=== PATIENT | male | born 1935 | race Caucasian/White ===

== ENCOUNTER → 2017-01-04 | Outpatient (CLI) | payer MEDICARE ==
--- NOTE | 2017-01-04 15:42 | US ---
EXAMINATION TYPE: US kidneys/renal and bladder DATE OF EXAM: 01/04/2017 3:14 PM COMPARISON: NONE CLINICAL HISTORY: R94.4 Abn Renal Function Test. Patient stated has had bilateral renal stones with r ight renal surgery/and possible partial nephrectomy for stone removal EXAM MEASUREMENTS: Right Kidney: 9.3 x 6.5 x 4.4 cm Left Kidney: 15.5 x 7.5 x 6.3 cm Post Void Residual Volume: 1.3 mL TECHNOLOGIST IMPRESSION: Right Kidney: smaller than left kidney and may be related to renal surgery; Left Kidney: couple of cortical simple appearing cysts with largest at mid pole = 2.9 x 3.6 x 2.6cm Bladder: not fully distended Bilateral Jets seen: not seen after 3 minute observation Normal Post Void Residual: Yes Bladder is poorly distended and thus suboptimally evaluated. No worrisome intraluminal mass or wall t hickening is seen. Scattered nonshadowing hyperechoic foci may reflect small nonobstructing renal shabbir culi upper pole level right kidney. IMPRESSION: Asymmetric sizes to kidneys may be product of prior right-sided renal surgery. Some simpl e appearing cysts are scattered throughout the left kidney. No hydronephrosis is evident bilaterally.
== END | disposition home or self-care (01) ==
LOC: RADUSWWP 14:32
PROVIDERS: ATTEND Family Medicine
DX: N28.1 Cyst of kidney, acquired (principal); Z98.890 Other specified postprocedural states
CPT/HCPCS: 76770

== ENCOUNTER 2018-01-21 21:01 | Emergency (ER) | payer MEDICARE ==
[2018-01-21] MEDS ORDERED: SODIUM CHLORIDE 0.9% 1,000 ML IV STA ×2 (21:31)
[2018-01-21] MEDS ORDERED: ACETAMINOPHEN IV (For NPO) 1,000 MG in EMPTY BAG 1 BAG IVPB STA (21:32)
[2018-01-21] MEDS ORDERED: KETOROLAC 30 MG/ML 1 ML VIAL IVP STA (21:32)
[2018-01-21 21:58] VITALS: RESP 20
[2018-01-21 22:00] LABS: Basophils # (A) 0.1 k/uL (0-0.2); Basophils % (A) 1 %; Eosinophils # (A) 0.3 k/uL (0-0.7); Eosinophils % (A) 3 %; HCT 41.9 % (39.0-53.0); HGB 13.8 gm/dL (13.0-17.5); Lymphocytes # (A) 2.6 k/uL (1.0-4.8); Lymphocytes % (A) 27 %; MCH 29.8 pg (25.0-35.0); MCHC 32.8 g/dL (31.0-37.0); MCV 90.8 fL (80.0-100.0); Mean Platelet Volume 6.7; Monocytes # (A) 0.9 k/uL (0-1.0); Monocytes % (A) 10 %; Neutrophils # (A) 5.3 k/uL (1.3-7.7); Neutrophils % (A) 56 %; Platelet Count 308 k/uL (150-450); RBC 4.62 m/uL (4.30-5.90); RDW 13.4 % (11.5-15.5); WBC 9.5 k/uL (3.8-10.6)
[2018-01-21 22:10] LABS: ALT 22 U/L (21-72); AST 33 U/L (17-59); Alkaline Phosphatase 144 U/L (38-126); Anion Gap 10 mmol/L; Blood Urea Nitrogen 21 mg/dL (9-20); Calcium 9.9 mg/dL (8.4-10.2); Carbon Dioxide 28 mmol/L (22-30); Chloride 97 mmol/L (98-107); Glucose 113 mg/dL (74-99); Magnesium 1.6 mg/dL (1.6-2.3); Phosphorus 3.9 mg/dL (2.5-4.5); Potassium 4.4 mmol/L (3.5-5.1); Sodium 135 mmol/L (137-145); Total Bilirubin 0.3 mg/dL (0.2-1.3); Total Protein 7.8 g/dL (6.3-8.2)
--- NOTE | 2018-01-21 22:31 | XR ---
EXAMINATION TYPE: XR chest 2V DATE OF EXAM: 01/21/2018 COMPARISON: NONE HISTORY: Hypertension. Altered mental status TECHNIQUE: Frontal and lateral views of the chest are obtained. FINDINGS: There is no heart failure nor confluent pneumonic infiltrate. There is coarsening of inter stitial markings the lung bases. Thoracic aorta is atheromatous. Bony thorax is intact. IMPRESSION: Pulmonary mild fibrotic changes. Ankylotic changes in the thoracic spine. No acute lung disease. No adverse change compared to old exam.
--- NOTE | 2018-01-21 22:34 | CT ---
EXAMINATION TYPE: CT brain wo con DATE OF EXAM: 01/21/2018 COMPARISON: 11/26/2017 HISTORY: Elevated blood pressure with headache CT DLP: 1047.1 mGycm Automated exposure control for dose reduction was used. FINDINGS: There is cerebral cortical atrophy. There is patchy moderate hypodensity in the periventricular white matter. There is mild cortical hypodensity in the occipital lobes. There is no midline shift. There is some cortical hypodensity in the right posterior frontal lobe. Calvarium is intact. There is no ev idence of intracranial hemorrhage. 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 THERE IS ALSO MILD INFARCT IN THE OCCIPITAL LOBES. NO SIGNIFICANT CHANGE COMPARED T O OLD EXAM.
--- NOTE | 2018-01-21 22:55 | ED ---
General Adult HPI - General Chief complaint: Recheck/Abnormal Lab/Rx Stated complaint: blood pressure Time Seen by Provider: 01/21/18 21:31 Source: patient, RN notes reviewed, old records reviewed Mode of arrival: wheelchair Limitations: no limitations - History of Present Illness Initial comments: This is an 82-year-old male to the ER for evaluation. Patient presented ER for evaluation and altered mental status, fever, headache, not appropriate. Patient 's states patient actually this when he has infection. Patient herself has no complaints. Family also her blood pressure be significantly elevated at home. Patient is poor historian secondary to clinical condition - Related Data Home Medications Medication Instructions Recorded Confirmed Brimonidine Tartrate/Timolol 1 drops LEFT EYE BID 05/28/14 01/21/18 [Combigan 0.2%/0.5% Ophth Soln] Sertraline [Zoloft] 100 mg PO DAILY 05/28/14 01/21/18 Zolpidem [Ambien] 10 mg PO HS PRN 05/28/14 01/21/18 ALPRAZolam [Xanax] 0.25 mg PO BID PRN 04/27/15 01/21/18 cloNIDine 0.1 MG/24HR PATCH 1 patch TRANSDERM TH 04/27/15 01/21/18 [Catapres-TTS] clonazePAM [KlonoPIN] 1 mg PO BID 04/27/15 01/21/18 Apixaban [Eliquis] 2.5 mg PO BID 11/22/17 01/21/18 Bimatoprost [Lumigan .01% Ophth 1 drop LEFT EYE HS 11/22/17 01/21/18 Soln] Metoprolol Tartrate [Lopressor] 25 mg PO BID 11/22/17 01/21/18 Ranitidine HCl [Zantac] 150 mg PO HS 11/22/17 01/21/18 Mesalamine [Delzicol] 400 mg PO BID 01/21/18 01/21/18 Zzzquil 1 cap PO HS PRN 01/21/18 01/21/18 Allergies Allergy/AdvReac Type Severity Reaction Status Date / Time amlodipine besylate Allergy Unknown Verified 01/21/18 21:32 [From Norvasc] diphenhydramine HCl Allergy Unknown Verified 01/21/18 21:32 [From Benadryl] duloxetine HCl Allergy Unknown Verified 01/21/18 21:32 [From Cymbalta] levofloxacin [From Levaquin] Allergy Rash/Hives Verified 01/21/18 21:32 Penicillins Allergy Rash/Hives Verified 01/21/18 21:32 prochlorperazine edisylate Allergy Unknown Verified 01/21/18 21:32 [From Compazine] prochlorperazine maleate Allergy Unknown Verified 01/21/18 21:32 [From Compazine] adhesive AdvReac Unknown Verified 01/21/18 21:32 Review of Systems ROS Statement: Those systems with pertinent positive or pertinent negative responses have been documented in the HPI. ROS Other: All systems not noted in ROS Statement are negative. 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 History of Any Multi-Drug Resistant Organisms: None Reported Past Surgical History: Appendectomy, Back Surgery, Cholecystectomy, Joint Replacement, Orthopedic Surgery Additional Past Surgical History / Comment(s): BILATERAL TOTAL KNEE ARTHROPLASTIES, BACK SURGERIES X 3/FUSIONS, RT PARTIAL KIDNEY REMOVED, ROTATOR CUFF RT OPEN SURGERY, R CAROTID ENDARTECTOMY, COLONOSCOPY, SKIN CANCER REMOVALS Past Anesthesia/Blood Transfusion Reactions: No Reported Reaction Additional Past Anesthesia/Blood Transfusion Reaction / Comment(s): Large amount of anesthesia to put pt to sleep. Past Psychological History: Depression Smoking Status: Former smoker Past Alcohol Use History: None Reported Past Drug Use History: None Reported - Past Family History Father Family Medical History: Coronary Artery Disease (CAD), Myocardial Infarction (HI ) Additional Family Medical History / Comment(s): Father of a HI at age 53yrs. Mother Family Medical History: No Reported History Additional Family Medical History / Comment(s): Mother was healthy and lived to be in her 80's. General Exam Limitations: no limitations General appearance: alert, in no apparent distress Head exam: Present: atraumatic, normocephalic, normal inspection Eye exam: Present: normal appearance, PERRL, EOMI. Absent: scleral icterus, conjunctival injection, periorbital swelling ENT exam: Present: normal exam, mucous membranes moist Neck exam: Present: normal inspection. Absent: tenderness, meningismus, lymphadenopathy Respiratory exam: Present: normal lung sounds bilaterally. Absent: respiratory distress, wheezes, rales, rhonchi, stridor Cardiovascular Exam: Present: regular rate, normal rhythm, normal heart sounds. Absent: systolic murmur, diastolic murmur, rubs, gallop, clicks GI/Abdominal exam: Present: soft, normal bowel sounds. Absent: distended, tenderness, guarding, rebound, rigid Extremities exam: Present: normal inspection, full ROM, normal capillary refill. Absent: tenderness, pedal edema, joint swelling, calf tenderness Back exam: Present: normal inspection Neurological exam: Present: alert, oriented X3, CN II-XII intact Psychiatric exam: Present: normal affect, normal mood Skin exam: Present: warm, dry, intact, normal color. Absent: rash Course Vital Signs 01/21/18 01/21/18 01/21/18 21:06 21:53 21:57 Temperature 100.4 F H Pulse Rate 76 73 74 Respiratory 18 20 20 Rate Blood Pressure 119/69 135/78 135/78 O2 Sat by Pulse 93 L 92 L 90 L Oximetry 01/21/18 23:09 Temperature 98.6 F Pulse Rate 68 Respiratory 20 Rate Blood Pressure 125/70 O2 Sat by Pulse 94 L Oximetry - Reevaluation(s) Reevaluation #1: 01/22/18 00:02 We'll pressure remains improved, mental head is mental status is improved now blood pressure control Reevaluation #2: 01/22/18 00:03 Patient is feeling better with IV hydration and fever control Medical Decision Making - Medical Decision Making 82 male the ER for evaluation of altered mental status with hypertension, those symptoms resolved upon arrival to ER. Patient did have fever no, no found cause of fever at this time. Viral syndrome. Patient was discharged home follow-up with Dr. Fam. Spoke speaking with , patient is at baseline, she would like to take him home - Lab Data Result diagrams: 01/21/18 21:48 01/21/18 21:48 Lab Results 01/21/18 01/21/18 01/21/18 Range/Units 21:48 21:48 21:48 WBC 9.5 (3.8-10.6) k/uL RBC 4.62 (4.30-5.90) m/uL Hgb 13.8 (13.0-17.5) gm/dL Hct 41.9 (39.0-53.0) % MCV 90.8 (80.0-100.0) fL MCH 29.8 (25.0-35.0) pg MCHC 32.8 (31.0-37.0) g/dL RDW 13.4 (11.5-15.5) % Plt Count 308 (150-450) k/uL Neutrophils % 56 % Lymphocytes % 27 % Monocytes % 10 % Eosinophils % 3 % Basophils % 1 % Neutrophils # 5.3 (1.3-7.7) k/uL Lymphocytes # 2.6 (1.0-4.8) k/uL Monocytes # 0.9 (0-1.0) k/uL Eosinophils # 0.3 (0-0.7) k/uL Basophils # 0.1 (0-0.2) k/uL Sodium 135 L (137-145) mmol/L Potassium 4.4 (3.5-5.1) mmol/L Chloride 97 L (98-107) mmol/L Carbon Dioxide 28 (22-30) mmol/L Anion Gap 10 mmol/L BUN 21 H (9-20) mg/dL Creatinine 1.30 H (0.66-1.25) mg/dL Est GFR (MDRD) Af Amer >60 (>60 ml/min/1.73 sqM) Est GFR (MDRD) Non-Af 53 (>60 ml/min/1.73 sqM) Glucose 113 H (74-99) mg/dL Plasma Lactic Acid Giuseppe 1.7 (0.7-2.0) mmol/L Calcium 9.9 (8.4-10.2) mg/dL Phosphorus 3.9 (2.5-4.5) mg/dL Magnesium 1.6 (1.6-2.3) mg/dL Total Bilirubin 0.3 (0.2-1.3) mg/dL AST 33 (17-59) U/L ALT 22 (21-72) U/L Alkaline Phosphatase 144 H (38-126) U/L Total Protein 7.8 (6.3-8.2) g/dL Albumin 4.0 (3.5-5.0) g/dL Urine Color Urine Appearance (Clear) Urine pH (5.0-8.0) Ur Specific Doyle (1.001-1.035) Urine Protein (Negative) Urine Glucose (UA) (Negative) Urine Ketones (Negative) Urine Blood (Negative) Urine Nitrite (Negative) Urine Bilirubin (Negative) Urine Urobilinogen (<2.0) mg/dL Ur Leukocyte Esterase (Negative) Urine WBC (0-5) /hpf Ur Squamous Epith Cells (0-4) /hpf Hyaline Casts (0-2) /lpf Urine Mucus (None) /hpf Influenza Type A RNA (Not Detectd) Influenza Type B (PCR) (Not Detectd) 01/21/18 01/22/18 Range/Units 21:55 01:10 WBC (3.8-10.6) k/uL RBC (4.30-5.90) m/uL Hgb (13.0-17.5) gm/dL Hct (39.0-53.0) % MCV (80.0-100.0) fL MCH (25.0-35.0) pg MCHC (31.0-37.0) g/dL RDW (11.5-15.5) % Plt Count (150-450) k/uL Neutrophils % % Lymphocytes % % Monocytes % % Eosinophils % % Basophils % % Neutrophils # (1.3-7.7) k/uL Lymphocytes # (1.0-4.8) k/uL Monocytes # (0-1.0) k/uL Eosinophils # (0-0.7) k/uL Basophils # (0-0.2) k/uL Sodium (137-145) mmol/L Potassium (3.5-5.1) mmol/L Chloride (98-107) mmol/L Carbon Dioxide (22-30) mmol/L Anion Gap mmol/L BUN (9-20) mg/dL Creatinine (0.66-1.25) mg/dL Est GFR (MDRD) Af Amer (>60 ml/min/1.73 sqM) Est GFR (MDRD) Non-Af (>60 ml/min/1.73 sqM) Glucose (74-99) mg/dL Plasma Lactic Acid Giuseppe (0.7-2.0) mmol/L Calcium (8.4-10.2) mg/dL Phosphorus (2.5-4.5) mg/dL Magnesium (1.6-2.3) mg/dL Total Bilirubin (0.2-1.3) mg/dL AST (17-59) U/L ALT (21-72) U/L Alkaline Phosphatase (38-126) U/L Total Protein (6.3-8.2) g/dL Albumin (3.5-5.0) g/dL Urine Color Yellow Urine Appearance Clear (Clear) Urine pH 5.5 (5.0-8.0) Ur Specific Doyle 1.020 (1.001-1.035) Urine Protein 1+ H (Negative) Urine Glucose (UA) Negative (Negative) Urine Ketones Negative (Negative) Urine Blood Negative (Negative) Urine Nitrite Negative (Negative) Urine Bilirubin Negative (Negative) Urine Urobilinogen <2.0 (<2.0) mg/dL Ur Leukocyte Esterase Negative (Negative) Urine WBC 1 (0-5) /hpf Ur Squamous Epith Cells <1 (0-4) /hpf Hyaline Casts 1 (0-2) /lpf Urine Mucus Occasional H (None) /hpf Influenza Type A RNA Not Detected (Not Detectd) Influenza Type B (PCR) Not Detected (Not Detectd) - Radiology Data Radiology results: report reviewed (CT brain chest x-ray negative for acute disease), image reviewed Disposition Clinical Impression: Dementia, Altered mental status, Fever, Hypertension Disposition: HOME SELF-CARE Condition: Good Instructions: Fever in Adults (ED), Altered Mental Status (ED), Hypertension ( ED) Referrals: Helio Lawson MD [Primary Care Provider] - 1-2 days
[2018-01-21 23:10] VITALS: PULSE 68
[2018-01-22 01:30] LABS: Appearance,Urine Clear (Clear); Bilirubin,Urine Negative (Negative); Blood,Urine Negative (Negative); Color,Urine Yellow; Glucose,Urine (UA) Negative (Negative); Hyaline Casts,Urine 1 /lpf (0-2); Ketones,Urine Negative (Negative); Leukocyte Esterase,Urine Negative (Negative); Mucus,Urine Occasional /hpf; Nitrite,Urine Negative (Negative); PH, Urine 5.5 (5.0-8.0); Protein,Urine 1+ (Negative); Squamous Epithelial Cell,Urine <1 /hpf (0-4); Urobilinogen,Urine <2.0 mg/dL (<2.0); WBC,Urine 1 /hpf (0-5)
[2018-01-22 01:58] VITALS: BP 150/73; TEMP 98.4
== END 2018-01-22 01:58 | disposition home or self-care (01) ==
LOC: EC 21:01
DX: F03.90 Unspecified dementia, unspecified severity, without behavioral disturbance, psychotic disturbance, mood disturbance, and anxiety (principal); R41.82 Altered mental status, unspecified; I10 Essential (primary) hypertension; R50.9 Fever, unspecified; R51 Headache; H91.90 Unspecified hearing loss, unspecified ear; F32.9 Major depressive disorder, single episode, unspecified; Z87.891 Personal history of nicotine dependence; Z79.01 Long term (current) use of anticoagulants; Z79.899 Other long term (current) drug therapy; Z88.0 Allergy status to penicillin; Z88.1 Allergy status to other antibiotic agents; Z88.8 Allergy status to other drugs, medicaments and biological substances; Z91.09 Other allergy status, other than to drugs and biological substances; Z86.73 Personal history of transient ischemic attack (TIA), and cerebral infarction without residual deficits; Z85.828 Personal history of other malignant neoplasm of skin; Z85.820 Personal history of malignant melanoma of skin; Z92.3 Personal history of irradiation; Z82.49 Family history of ischemic heart disease and other diseases of the circulatory system
CPT/HCPCS: 36415; 80053; 83605; 83735; 84100; 85025; 81001; 87040; 87086; 87502; 71046; 70450; 99285; 96365; 96366 ×2; 96375; J1885; J0131

== ENCOUNTER → 2018-05-13 | Outpatient (CLI) | payer MEDICARE ==
--- NOTE | 2018-05-13 13:48 | CT ---
EXAMINATION TYPE: CT brain wo con DATE OF EXAM: 05/13/2018 COMPARISON: 01/21/2018 HISTORY: Fall, head injury CT DLP: 1195.3 mGycm Automated exposure control for dose reduction was used. FINDINGS: There is cerebral cortical atrophy. There is patchy extensive hypodensity in the periventricular whit e matter. On the right. There is mild cortical hypodensity in the occipital lobes. There is no midline shift. There is some cortical hypodensity in the right posterior frontal lobe. Calvarium is intact. There is no evidence of intracranial hemorrhage. There is intracranial atheroscl erotic changes. Tiny remote lacunar infarct right basal ganglia. IMPRESSION: 1. Degenerative and extensive remote ischemic change as discussed above with no evidence of acute hem orrhage or mass effect.
--- NOTE | 2018-05-13 13:57 | CT ---
EXAMINATION TYPE: CT abdomen pelvis wo con DATE OF EXAM: 05/13/2018 COMPARISON: Prior pelvis dated 05/28/2014, lumbar spine 11/09/2015 HISTORY: Abdominal pain CT DLP: 1136.54 mGycm Automated exposure control for dose reduction was used. TECHNIQUE: Helical acquisition of images from the lung bases through the pelvis. FINDINGS: Lack of intravenous contrast could compromise the sensitivity of the exam LUNG BASES: Minimal dependent atelectatic changes or basilar scarring suspected. No pleural or peric ardial effusion. There are coronary artery calcifications present. Hiatal hernia is also noted. AORTA: No significant abnormality is appreciated. LIVER/GB: Liver within normal limits, gallbladder is absent PANCREAS: Somewhat atrophic SPLEEN: Some distortion of the normal spleen change is noted possibly congenital ADRENALS: No significant abnormality is seen. KIDNEYS: Postop changes are noted superficial to the right kidney, there is some displacement of the right kidney posteriorly, correlate for history of surgery, partial nephrectomy, there is posterior c ortical thinning. Possible cortical cyst measuring 2.5 cm mid pole left kidney, hyperdense focus pres ent in the lower pole measures only approximately 4 to 5 mm. Punctate nonobstructive calcification pr esent anteriorly at the midpole measuring 2 to 3 mm. REPRODUCTIVE ORGANS: Prostate gland shows associated calcifications. URINARY BLADDER: Some mild wall thickening may be due to chronic outlet obstruction, correlate to ex clude cystitis BOWEL: Small duodenal diverticulum present at the third portion of the duodenum, there is no bowel o bstruction. There are some fluid-filled loops of small and large bowel. FREE AIR: No Free Air is visible. ASCITES: None visible. PELVIC ADENOPATHY: None visualized. RETROPERITONEAL ADENOPATHY: No Retroperitoneal Adenopathy visible. OSSEOUS STRUCTURES: Ankylosis noted at the sacroiliac joints. Some demineralization noted in the pel val bones, postop changes are noted to the lumbar spine at L3-L5 status post laminectomies with some spinal stenosis L2-3, there is multilevel facet arthropathy. Postop change noted to the right femur. IMPRESSION: NONCONTRAST EXAM. CORRELATE FOR PRIOR SURGERIES. NONOBSTRUCTIVE LEFT NEPHROLITHIASIS. CORRELATE FOR C HRONIC BLADDER OUTLET OBSTRUCTION. CORONARY ARTERY DISEASE AND ADDITIONAL FINDINGS ABOVE, FOLLOW-UP A S INDICATED. Correlate to exclude enteritis.
== END ==
LOC: RADCTMAIN 11:55
PROVIDERS: ATTEND Family Medicine
DX: N20.0 Calculus of kidney (principal); I25.10 Atherosclerotic heart disease of native coronary artery without angina pectoris; G31.9 Degenerative disease of nervous system, unspecified; I63.9 Cerebral infarction, unspecified
CPT/HCPCS: 70450; 74176

== ENCOUNTER → 2018-09-30 | Outpatient (CLI) | payer MEDICARE ==
[2018-09-30 15:41] LABS: HCT 41.4 % (39.0-53.0); HGB 13.5 gm/dL (13.0-17.5); MCH 30.1 pg (25.0-35.0); MCHC 32.7 g/dL (31.0-37.0); MCV 92.2 fL (80.0-100.0); Mean Platelet Volume 6.5; Platelet Count 323 k/uL (150-450); RDW 14.6 % (11.5-15.5)
[2018-09-30 19:32] LABS: Anion Gap 8.8 mmol/L (4.00-12.00); Calcium 9.5 mg/dL (8.7-10.3); Carbon Dioxide 25.2 mmol/L (21.6-31.8); Potassium 4.7 mmol/L (3.5-5.5)
== END | disposition home or self-care (01) ==
LOC: LABWHC1 14:52
PROVIDERS: ATTEND Internal Medicine Interventional Cardiology
DX: I25.10 Atherosclerotic heart disease of native coronary artery without angina pectoris (principal); I10 Essential (primary) hypertension
CPT/HCPCS: 36415; 80048; 85027

== ENCOUNTER 2019-05-27 00:52 | Emergency (ER) | payer MEDICARE ==
[2019-05-27] MEDS ORDERED: SODIUM CHLORIDE 0.9% 500 ML BAG ONE (02:00)
[2019-05-27 06:35] LABS: Albumin 4.2 g/dL (3.5-5.0); Calcium 9.5 mg/dL (8.4-10.2); INR 1.1 (<1.2); Magnesium 1.7 mg/dL (1.6-2.3); Partial Thromboplastin Time 27.5 sec (22.0-30.0); Potassium 4.6 mmol/L (3.5-5.1); Prothrombin Time 11.4 sec (9.0-12.0); Total Bilirubin 0.4 mg/dL (0.2-1.3); Total Protein 7.7 g/dL (6.3-8.2)
[2019-05-27 06:36] LABS: Basophils % (A) 0 %; Eosinophils # (A) 0.2 k/uL (0-0.7); Eosinophils % (A) 1 %; HCT 38.1 % (39.0-53.0); HGB 12.5 gm/dL (13.0-17.5); Lymphocytes % (A) 9 %; MCH 30.5 pg (25.0-35.0); MCHC 32.7 g/dL (31.0-37.0); MCV 93.3 fL (80.0-100.0); Mean Platelet Volume 7.7; Monocytes # (A) 0.5 k/uL (0-1.0); Monocytes % (A) 5 %; Neutrophils # (A) 9.4 k/uL (1.3-7.7); Neutrophils % (A) 84 %; Platelet Count 320 k/uL (150-450); RBC 4.09 m/uL (4.30-5.90); RDW 13.5 % (11.5-15.5); WBC 11.2 k/uL (3.8-10.6)
== END 2019-05-27 03:58 | disposition home or self-care (01) ==
LOC: EC 00:52
DX: A08.4 Viral intestinal infection, unspecified (principal)
CPT/HCPCS: 36415; 80053; 83690; 83735; 84484; 85025; 85610; 85730; 99284